=== PATIENT | female | born 1985 | race Caucasian/White ===

== ENCOUNTER → 2016-04-20 | Outpatient (CLI) | payer OTHER | LOC: M LAB 14:44 | PROVIDERS: ATTEND Advanced Practice Midwife | DX: N92.0 Excessive and frequent menstruation with regular cycle (principal) ==

== ENCOUNTER → 2016-08-30 | Outpatient (CLI) | payer OTHER ==
[2016-08-30 13:55] LABS: BASO % 0.4 % (0.0-1.0); EOS # 0.4 K/mm3 (0.0-0.50); EOS % 4.9 % (0.0-3.0); LARGE UNSTAINED CELL # 0.1 K/mm3 (0.0-0.4); LARGE UNSTAINED CELL % 1.4 % (0.0-4.0); LYMPH # 2.4 K/mm3 (1.5-4.5); LYMPH % 27.5 % (24.0-44.0); MEAN CORPUSCULAR HEMOGLOBIN 31.9 pg (27.0-33.0); MEAN CORPUSCULAR HGB CONC 34.2 g/dl (32.0-36.5); MEAN CORPUSCULAR VOLUME 93.3 fl (80.0-96.0); MONO # 0.4 K/mm3 (0.0-0.8); MONO % 5.2 % (0.0-5.0); NEUTROPHILS # 5.1 K/mm3 (1.8-7.7); NEUTROPHILS % 60.6 % (36.0-66.0); PLATELET COUNT, AUTOMATED 186 k/mm3 (150-450); RED CELL DISTRIBUTION WIDTH 13.3 % (11.5-14.5); WHITE BLOOD COUNT 8.4 K/mm3 (4.0-10.0)
[2016-08-30 14:41] LABS: HBsAg Prenatal NEGATIVE (NEGATIVE)
== END ==
LOC: M LAB 13:03
PROVIDERS: ATTEND Advanced Practice Midwife
DX: Z34.81 Encounter for supervision of other normal pregnancy, first trimester (principal)

== ENCOUNTER → 2016-11-25 | Outpatient (CLI) | payer OTHER ==
--- NOTE | 2016-11-25 13:22 | REP ---
OB ULTRASOUND: Real-time sonographic evaluation of the gravid uterus performed. There is a single living intrauterine gestation. The estimated gestational age is 19 weeks 6 days based on LMP with EDC 04/15/2017. Today's measurements indicate appropriate growth. BPD 46 mm = 19 weeks 6 days, 50th percentile HC 166 mm = 19 weeks 2 days, 32nd percentile AC 154 mm = 20 weeks 4 days, 65th percentile Femur length 31 mm = 19 weeks 4 days, 43rd percentile HC/AC ratio 1.08 within normal range. Estimated weight 329 grams, 52nd percentile. Cervix is closed and measures 6 cm in length. heart rate 153 beats per minute. SEEN/GROSSLY UNREMARKABLE Lateral ventricles Yes Posterior fossa Yes Upper lip Yes Four-chamber heart Yes LVOT Yes RVOT Yes Stomach Yes Cord insertion Yes Three vessel cord Yes Kidneys Yes Bladder Yes Spine Yes position: Variable. Placenta: Posterior and grade 0 with no previa or abruption. Amniotic fluid: Within normal limits. Signed by Charles Beltre MD 11/25/2016 05:04 P
== END ==
LOC: M RAD 11:09
PROVIDERS: ATTEND Advanced Practice Midwife
DX: Z34.82 Encounter for supervision of other normal pregnancy, second trimester (principal); Z3A.19 19 weeks gestation of pregnancy

== ENCOUNTER → 2016-12-30 | Outpatient (CLI) | payer OTHER ==
[2016-12-30 20:37] LABS: BASO % 0.2 % (0.0-1.0); EOS # 0.2 K/mm3 (0.0-0.50); EOS % 1.5 % (0.0-3.0); LARGE UNSTAINED CELL # 0.1 K/mm3 (0.0-0.4); LARGE UNSTAINED CELL % 1.3 % (0.0-4.0); LYMPH # 2.2 K/mm3 (1.5-4.5); LYMPH % 20.1 % (24.0-44.0); MEAN CORPUSCULAR HEMOGLOBIN 32.9 pg (27.0-33.0); MEAN CORPUSCULAR HGB CONC 33.8 g/dl (32.0-36.5); MEAN CORPUSCULAR VOLUME 97.4 fl (80.0-96.0); MONO # 0.4 K/mm3 (0.0-0.8); MONO % 3.8 % (0.0-5.0); NEUTROPHILS # 7.8 K/mm3 (1.8-7.7); NEUTROPHILS % 73.1 % (36.0-66.0); PLATELET COUNT, AUTOMATED 181 k/mm3 (150-450); RED CELL DISTRIBUTION WIDTH 13.9 % (11.5-14.5); WHITE BLOOD COUNT 10.7 K/mm3 (4.0-10.0)
== END ==
LOC: M SMT 14:01
PROVIDERS: ATTEND Advanced Practice Midwife
DX: Z34.83 Encounter for supervision of other normal pregnancy, third trimester (principal)
CPT/HCPCS: 36415; 82950; 85025; 86850; 86900; 86901; J2790

== ENCOUNTER → 2017-03-22 | Outpatient (REF) | payer OTHER | LOC: M LAB REF 17:13 | PROVIDERS: ATTEND Specialist | DX: Z34.83 Encounter for supervision of other normal pregnancy, third trimester (principal); Z3A.00 Weeks of gestation of pregnancy not specified ==

== ENCOUNTER 2017-04-22 17:04 | Inpatient (IN) | payer OTHER ==
[2017-04-22] MEDS: miSOPROStol 50 MCG 1/2 TAB (S0191) SL ×2 (19:17→22:28)
[2017-04-22 19:18] LABS: HEMATOCRIT 37.7 % (36.0-47.0); HEMOGLOBIN 12.7 g/dl (12.0-16.0); MEAN CORPUSCULAR HEMOGLOBIN 31.1 pg (27.0-33.0); MEAN CORPUSCULAR HGB CONC 33.7 g/dl (32.0-36.5); MEAN CORPUSCULAR VOLUME 92.2 fl (80.0-96.0); PLATELET COUNT, AUTOMATED 170 10^3/uL (150-450); RED BLOOD COUNT 4.09 10^6/uL (4.00-5.40); RED CELL DISTRIBUTION WIDTH 14.4 % (11.5-14.5); WHITE BLOOD COUNT 10.4 10^3/uL (4.0-10.0)
[2017-04-22 19:38] LABS: AMPHETAMINES URINE REFLEX NEGATIVE (NEGATIVE); BARBITURATES URINE REFLEX NEGATIVE (NEGATIVE); BENZODIAZEPINES URINE REFLEX NEGATIVE (NEGATIVE); CANNABINOIDS URINE REFLEX NEGATIVE (NEGATIVE); COCAINE METABOLITE URINE REFLE NEGATIVE (NEGATIVE); METHADONE URINE REFLEX NEGATIVE (NEGATIVE); OPIATES URINE REFLEX NEGATIVE (NEGATIVE); PHENCYCLIDINE URINE REFLEX NEGATIVE (NEGATIVE)
[2017-04-23] MEDS: miSOPROStol 50 MCG 1/2 TAB (S0191) SL ×4 (02:07→14:00)
[2017-04-23] MEDS: PENICILLIN G POTASSIUM IV 5 MU in D5W MINI-BAG PLUS 100 ML IV (05:48)
[2017-04-23] MEDS ORDERED: FENTANYL 2MCG/ML ROPIVACAINE 0.2% IN 0.9% NACL 200ML IVBAG As Ordered (06:43)
[2017-04-23] MEDS: PRENATAL VITAMINS CHEWABLE TABLET PO (09:00)
[2017-04-23] MEDS ORDERED: OXYTOCIN 30 UNITS IN 0.9% NaCl 500ML IV BAG (J2590) As Ordered (09:05)
[2017-04-23] MEDS: LR 1,000 ML IV ×2 (09:15→09:49)
[2017-04-23] MEDS: PENICILLIN G POTASSIUM IV 2.5 MU in APPROPRIATE DILUENT 1 EA IV ×2 (09:49→13:45)
[2017-04-23] MEDS: OXYTOCIN DRIP 30 UNITS in APPROPRIATE DILUENT 1 EA IV ×2 (11:12→14:30)
[2017-04-23] MEDS ORDERED: DIBUCAINE 1% OINTMENT 30GM TOP (14:30)
[2017-04-23] MEDS ORDERED: ONDANSETRON 4MG/2ML VIAL (J2405) IV (14:30)
[2017-04-23] MEDS: LIDOCAINE 1% MDV INJ 50 ML VIAL INFIL (14:30)
[2017-04-23] MEDS ORDERED: METHYLERGONOVINE MALEATE 0.2 MG TAB PO (14:30)
[2017-04-23] MEDS: MEASLES,MUMPS,RUBELLA VACCINE INJ (MMR-II) (90707) SC (18:27)
[2017-04-23] MEDS: DOCUSATE SODIUM 100 MG CAP PO (20:29)
[2017-04-23] MEDS: IBUPROFEN 800 MG TAB PO (20:30)
[2017-04-24] MEDS: PRENATAL VITAMINS CHEWABLE TABLET PO (09:33)
[2017-04-24] MEDS: ACETAMINOPHEN 500 MG TAB PO ×2 (09:35→21:01)
[2017-04-24] MEDS: IBUPROFEN 800 MG TAB PO ×2 (10:36→17:52)
[2017-04-24 14:50] LABS: FETAL SCREEN PROF. 1 1
[2017-04-24] MEDS: RHOGAM 300 MCG (1500 IU) INJ (J2790) IM (15:14)
[2017-04-24] MEDS: DOCUSATE SODIUM 100 MG CAP PO (17:51)
[2017-04-25] MEDS: PRENATAL VITAMINS CHEWABLE TABLET PO (08:50)
[2017-04-25] MEDS: IBUPROFEN 800 MG TAB PO (08:50)
== END 2017-04-25 13:25 | disposition home or self-care (01) | DRG 775 ==
LOC: M LDI 17:04 → M OBS 04-23 16:02
PROVIDERS: Specialist
PROC: 3E0P7GC Introduction of Other Therapeutic Substance into Female Reproductive, Via Natural or Artificial Opening (ICD-10-PCS; 2017-04-22)
PROC: 10E0XZZ Delivery of Products of Conception, External Approach (ICD-10-PCS; principal; 2017-04-23)
PROC: 0KQM0ZZ Repair Perineum Muscle, Open Approach (ICD-10-PCS; 2017-04-23)
DX: O48.0 Post-term pregnancy (principal); O99.824 Streptococcus B carrier state complicating childbirth; Z3A.41 41 weeks gestation of pregnancy; O70.1 Second degree perineal laceration during delivery; Z37.0 Single live birth

== ENCOUNTER → 2019-01-02 | Outpatient (REF) | payer OTHER ==
[~2019-01-02] MED LIST: PRENTAB9 PO
[2019-01-05 00:08] LABS: HPV HYBRID CAPTURE II Positive (Negative)
== END ==
LOC: M LAB REF 13:51
PROVIDERS: ATTEND Specialist
DX: Z12.4 Encounter for screening for malignant neoplasm of cervix (principal); B37.3 Candidiasis of vulva and vagina; R87.612 Low grade squamous intraepithelial lesion on cytologic smear of cervix (LGSIL)
CPT/HCPCS: 87624; G0123

== ENCOUNTER → 2019-02-23 | Outpatient (REF) | payer OTHER | LOC: M LAB REF 17:46 | PROVIDERS: ATTEND Specialist | DX: R87.612 Low grade squamous intraepithelial lesion on cytologic smear of cervix (LGSIL) (principal) ==